=== PATIENT | female | born 1985 | race Caucasian/White ===

== ENCOUNTER 2016-07-17 19:27 | Emergency (ER) | payer OTHER | END 2016-07-17 21:01 | disposition home or self-care (01) | LOC: ER 19:27 | DX: M54.42 Lumbago with sciatica, left side (principal); Z88.0 Allergy status to penicillin; Z88.8 Allergy status to other drugs, medicaments and biological substances; Z79.2 Long term (current) use of antibiotics | CPT/HCPCS: 96372; J1885 ==

== ENCOUNTER 2016-08-08 21:50 | Emergency (ER) | payer OTHER | END 2016-08-08 23:30 | disposition home or self-care (01) | LOC: ER 21:50 | DX: R09.1 Pleurisy (principal); J40 Bronchitis, not specified as acute or chronic; I10 Essential (primary) hypertension; G43.909 Migraine, unspecified, not intractable, without status migrainosus; F17.210 Nicotine dependence, cigarettes, uncomplicated; Z87.442 Personal history of urinary calculi; Z88.0 Allergy status to penicillin; Z88.8 Allergy status to other drugs, medicaments and biological substances | CPT/HCPCS: 36415; 87502; 87651 ==

== ENCOUNTER 2016-08-14 06:08 | Emergency (ER) | payer OTHER | END 2016-08-14 06:49 | disposition home or self-care (01) | LOC: ER 06:08 | DX: J20.9 Acute bronchitis, unspecified (principal); G43.909 Migraine, unspecified, not intractable, without status migrainosus; F17.210 Nicotine dependence, cigarettes, uncomplicated; Z87.442 Personal history of urinary calculi; Z88.0 Allergy status to penicillin; Z88.8 Allergy status to other drugs, medicaments and biological substances ==

== ENCOUNTER 2016-10-02 17:38 | Emergency (ER) | payer OTHER | END 2016-10-02 20:11 | disposition home or self-care (01) | LOC: ER 17:38 | DX: J42 Unspecified chronic bronchitis (principal); R09.1 Pleurisy; N80.9 Endometriosis, unspecified; G43.909 Migraine, unspecified, not intractable, without status migrainosus; F17.210 Nicotine dependence, cigarettes, uncomplicated; Z87.442 Personal history of urinary calculi; Z79.899 Other long term (current) drug therapy; Z88.0 Allergy status to penicillin; Z88.8 Allergy status to other drugs, medicaments and biological substances | CPT/HCPCS: 36415; 80307; 96374; 96375; J1885 ==

== ENCOUNTER 2016-10-18 22:43 | Emergency (ER) | payer OTHER | END 2016-10-19 01:17 | disposition home or self-care (01) | LOC: ER 22:43 | DX: J20.9 Acute bronchitis, unspecified (principal); R09.1 Pleurisy; E87.6 Hypokalemia; R11.2 Nausea with vomiting, unspecified; F17.210 Nicotine dependence, cigarettes, uncomplicated; Z88.0 Allergy status to penicillin; Z88.8 Allergy status to other drugs, medicaments and biological substances | CPT/HCPCS: 36415; 96361; 96374; 96375; J1100 ==